=== PATIENT | female | born 1950 | race Caucasian/White ===

== ENCOUNTER 2016-11-15 11:19 | Emergency (ER) | payer OTHER ==
--- NOTE | ~2016-11-15 | CR72 ---
[facility] A Service of [facility] & [facility] RADIOLOGY TEXT RESULTS PATIENT: KARIME CARPENTER LOCATION: [facility] : 54 UNIT #: [id number] AGE: [address]: Briseida Sunshine MD SEX: F ORDER DR: [id number] [facility] [address] [place], [place] [address] [id number] E MR#: [id number] Acc #: [id number] NAME: KARIME CARPENTER : 1950 SEX: F STUDY DATE/TIME: 11/15/2016 1242 UNIT: [facility] ROOM: STUDY DESCRIPTION: CR Chest Single View Portable Attending Physician: Briseida Sunshine M.D. Ordering Physician: Briseida Sunshine M.D. Primary Care Physician: Dinah Ruiz A.P.R.N. MEDICAL IMAGING REPORT This report is preliminary unless electronic signature is present EXAM Chest portable 11/15/2016 1242 hours HISTORY 66-year-old woman who fell at work today complaining of shortness of air and left anterior rib pain since fall. COMPARISON None. FINDINGS Portable upright chest film demonstrates normal heart size with a minimally tortuous aorta. The pulmonary vascularity is normal. The lungs demonstrate a few calcified granulomata. There is no acute pulmonary density or pleural effusion. No acute rib fracture is seen. IMPRESSION No acute cardiopulmonary findings. There are benign calcified granulomatous changes. There is no rib fracture, pleural effusion or pneumothorax. Dictated by... Lamar Pan M.D. THIS IS AN ELECTRONICALLY VERIFIED REPORT Lamar Pan M.D. at 11/18/2016 9:00 AM Luis Fernando TD: 11/15/2016 15:48 JOB #: [id number] MEDICAL IMAGING REPORT Page 1 of 1 COPY
== END 2016-11-15 15:59 | disposition home or self-care (01) ==
LOC: CED 11:19
DX: S20.212A Contusion of left front wall of thorax, initial encounter (principal); I10 Essential (primary) hypertension; W19.XXXA Unspecified fall, initial encounter; Y93.29 Activity, other involving ice and snow; Y92.69 Other specified industrial and construction area as the place of occurrence of the external cause; Y99.0 Civilian activity done for income or pay
CPT/HCPCS: 71010; 94010; 96374; 96376; 99284; J1170

== ENCOUNTER → 2016-12-25 | Outpatient (CLI) | payer OTHER ==
--- NOTE | ~2016-12-25 | BD1 ---
[facility] A Service of [facility] & [facility] RADIOLOGY TEXT RESULTS PATIENT: KARIME CARPENTER LOCATION: [facility] : 54 UNIT #: [id number] AGE: [address]: Dinah Ruiz APRN SEX: F ORDER DR: [id number] [address] [address] [id number] O MR#: [id number] Acc #: [id number] NAME: KARIME CARPENTER : 1950 SEX: F STUDY DATE/TIME: 12/25/2016 12:49 UNIT: [facility] ROOM: STUDY DESCRIPTION: Dexa Bone Dens 1+ Site Attending Physician: Dinah Ruiz A.P.R.N. Referring Physician: Dinah Ruiz A.P.R.N. Ordering Physician: Dinah Ruiz A.P.R.N. Primary Care Physician: Dinah Ruiz A.P.R.N. MEDICAL IMAGING REPORT This report is preliminary unless electronic signature is present. EXAM DXA scan, 12/25/2016 HISTORY Status post menopause with no hormone replacement therapy. Osteopenia. Hypertension with blood pressure medication for 3 years. FINDINGS Bone mineral density in the lumbar spine from L1-L4 is 0.96 g/cm2 which is 1.8 standard deviations below the mean when compared to the young adult reference population which is characteristic of osteopenia. This is 0.1 standard deviations above the mean when compared to the age-matched population. Compared with 12/20/2014 there has been a decrease in bone mineral density in the lumbar spine of 6.1%. Bone mineral density in the left femoral neck was 0.707 g/cm2 which is 2.4 standard deviations below the mean when compared to the young adult reference population which is characteristic of osteopenia. This is 0.7 standard deviations below the mean when compared to the age-matched population. Compared with 12/20/2014 there has been an increase in bone mineral density in the left hip of 0.8%. Bone mineral density in the right femoral neck was 0.707 g/cm2 which is 2.4 standard deviations below the mean when compared to the young adult reference population which is characteristic of osteopenia. This is 0.7 standard deviations below the mean when compared to the age-matched population. Compared with 12/20/2014 there has been an increase in bone mineral density in the right hip of 3.3%. IMPRESSION Bone mineral density in the lumbar spine characteristic of osteopenia and within the hips bilaterally also characteristic of osteopenia. Compared with 12/20/2014 there has been a decrease in bone mineral density in the [facility] A Service of [facility] RADIOLOGY TEXT RESULTS PATIENT: KARIME CARPENTER LOCATION: [facility] : 54 UNIT #: [id number] AGE: [address]: Dinah Ruiz APRN SEX: F ORDER DR: lumbar spine and an increase in bone mineral density in the hips bilaterally. Dictated by... Socrates Real M.D. THIS IS AN ELECTRONICALLY VERIFIED REPORT Socrates Real M.D. at 12/26/2016 6:17 AM HUONG/valeria TD: 12/25/2016 15:47 JOB #: [id number] MEDICAL IMAGING REPORT Page 1 of 1
== END | disposition home or self-care (01) ==
LOC: SRAD 12-24 11:30
DX: M81.0 Age-related osteoporosis without current pathological fracture (principal); Z78.0 Asymptomatic menopausal state
CPT/HCPCS: 77080

== ENCOUNTER → 2017-02-10 | Outpatient (CLI) | payer OTHER ==
--- NOTE | ~2017-02-10 | CT57 ---
[facility] A Service of [facility] & [facility] RADIOLOGY TEXT RESULTS PATIENT: KARIME CARPENTER LOCATION: [facility] : 54 UNIT #: [id number] AGE: [address]: Dinah Ruiz APRN SEX: F ORDER DR: [id number] [address] [address] [id number] O MR#: [id number] Acc #: [id number] NAME: KARIME CARPENTER : 1950 SEX: F STUDY DATE/TIME: 02/10/2017 11:00 UNIT: [facility] ROOM: STUDY DESCRIPTION: CT Chest Wo Cont Attending Physician: Dinah Ruiz A.P.R.N. Referring Physician: Dinah Ruiz A.P.R.N. Ordering Physician: Dinah Ruiz A.P.R.N. Primary Care Physician: Dinah Ruiz A.P.R.N. MEDICAL IMAGING REPORT This report is preliminary unless electronic signature is present. EXAM CT chest without contrast, 02/10/2017 HISTORY 66-year-old female who states chest x-ray had spots or nodules on last week, with shortness of breath. Hypertension. High cholesterol. No documented history of malignancy. Physician's order states two vague noncalcified nodular densities on the left midlung zone on recent chest x-ray. COMPARISON The patient's previous chest x-ray reportedly performed at Dr. Ruiz's office, and the report, are not available for correlation at the time of this interpretation. The only comparison study at this institution is a chest x-ray from 11/15/2016. PROCEDURE 5.0 mm axial images through the chest without contrast. Sagittal and coronal reformatted images were obtained. This CT exam was performed with one or more of the following radiation dose reduction techniques: automatic exposure control, adjustment of mA and/or kV according to patient size, and iterative reconstruction. FINDINGS There are subacute to chronic-appearing nonunited fractures of the left fourth through eighth ribs anterolaterally, some of which demonstrate abundant callus formation. These rib fractures cannot be seen on the comparison chest radiograph from 11/15/2016. There is faint ground-glass density in the posterior right lower lobe measuring 2.0 cm, which is nonspecific but may represent a focus of mild pneumonitis. No dense lung consolidations are identified. Mild scarring [facility]. [facility] A Service of [facility] & [facility] RADIOLOGY TEXT RESULTS PATIENT: KARIME CARPENTER LOCATION: [facility] : 54 UNIT #: [id number] AGE: [address]: Dinah Ruiz APRN SEX: F ORDER DR: is demonstrated within the lung apices. Benign calcified granuloma is present within the left lower lobe measuring 4.08 mm. Mediastinum appears within normal limits. No adenopathy is seen. Benign calcified left hilar lymph node is incidentally noted. No pericardial effusion, pleural effusion or pneumothorax. Within the upper abdomen, there is abnormal dilation of the renal calyces and pelves, left greater than right, incompletely included in the imaging field of view. Findings are worrisome for hydronephrosis. Remainder of included upper abdominal organs are within normal limits. There is mild thoracic spine curvature toward the right. IMPRESSION 1. A 4.0 mm calcified granuloma is demonstrated within the left lower lobe. Additionally, there is an ill-defined 2.0 cm ground-glass density in the left lower lobe, favored to represent an area of pneumonitis. It is unclear whether these represent the abnormalities seen on the outside chest radiograph. Please correlate with the chest radiograph image and report. 2. There are subacute to chronic left fourth through eighth rib fractures anterolaterally which are nonunited with abundant callus formation. These findings, too, could account for nodular densities on a chest radiograph, and again should be correlated to the patient's known findings. 3. Abnormal dilation of the renal pelves and calyces. Hydronephrosis should be considered. Please correlate with known clinical history. Ultimately, bilateral renal ultrasound or CT abdomen and pelvis without contrast may prove helpful for further evaluation. Dictated by... Shelly Khalil M.D. THIS IS AN ELECTRONICALLY VERIFIED REPORT Shelly Khalil M.D. at 02/13/2017 7:33 AM KAYA/valeria TD: 02/11/2017 16:02 JOB #: [id number] MEDICAL IMAGING REPORT Page 1 of 1
== END | disposition home or self-care (01) ==
LOC: SCT 10:15
DX: R93.8 Abnormal findings on diagnostic imaging of other specified body structures (principal); J84.10 Pulmonary fibrosis, unspecified; S22.42XK Multiple fractures of ribs, left side, subsequent encounter for fracture with nonunion; N28.89 Other specified disorders of kidney and ureter
CPT/HCPCS: 71250